=== PATIENT | male | born 1980 | race Caucasian/White ===

== ENCOUNTER 2017-11-22 14:54 | Inpatient (IN) | payer OTHER ==
[2017-11-22 15:40] LABS: ADD MAN DIFF? NO
[2017-11-22 15:41] LABS: BASO % 0 % (0-3); EOS # 0.1 x10^3/uL (0.0-0.7); EOS % 2 % (0-3); HEMATOCRIT 38.4 % (39.0-53.0); HEMOGLOBIN 13.4 g/dL (13.0-17.5); LYMPH # 0.8 x10^3/uL (1.0-4.8); LYMPH % 11 % (24-48); MEAN CORPUSCULAR HEMOGLOBIN 37 pg (25-35); MEAN CORPUSCULAR HGB CONC 35 g/dL (31-37); MEAN CORPUSCULAR VOLUME 106 fL (79-100); MONO # 0.7 x10^3/uL (0.0-1.1); MONO % 10 % (0-9); NEUT # 5.4 x10^3uL (1.8-7.7); NEUT % 77 % (31-73); PLATELET COUNT 28 x10^3/uL (140-400); RED BLOOD COUNT 3.64 x10^6/uL (4.30-5.70); RED CELL DISTRIBUTION WIDTH 16.7 % (11.5-14.5)
[2017-11-22 15:50] LABS: INR 2.1 (0.8-1.1); PROTHROMBIN TIME PATIENT 23.2 SEC (11.7-14.0)
[2017-11-22 15:51] LABS: PARTIAL THROMBOPLASTIN TIME 43 SEC (24-38)
[2017-11-22 15:55] LABS: ANION GAP 11 (6-14); BLOOD UREA NITROGEN 16 mg/dL (8-26); CALCIUM 8.8 mg/dL (8.5-10.1); CARBON DIOXIDE 24 mmol/L (21-32); CHLORIDE 99 mmol/L (98-107); CREATININE 1.1 mg/dL (0.7-1.3); GFR 76.2; GLUCOSE 127 mg/dL (70-99); POTASSIUM 3.9 mmol/L (3.5-5.1); SODIUM 134 mmol/L (136-145)
[2017-11-22 16:01] LABS: ACETAMIN < 2 mcg/ml (10-30); ETHANOL < 10 mg/dL (0-10); PLT ESTIMATE DECREASED (ADEQUATE); SALIC < 2.8 mg/dL (2.8-20.0)
[2017-11-22 16:02] LABS: ALBUMIN 3.2 g/dL (3.4-5.0); ALK PHOS 167 U/L (46-116); ALT (SGPT) 39 U/L (16-63); AST (SGOT) 148 U/L (15-37); DIRECT BILIRUBIN 6.6 mg/dL (0.0-0.2); MAGNESIUM 1.1 mg/dL (1.8-2.4); TOTAL BILIRUBIN 10.4 mg/dL (0.2-1.0)
[2017-11-22 16:07] LABS: THYROID STIM HORMONE (TSH) 2.864 uIU/mL (0.358-3.74)
[2017-11-22 16:08] LABS: AMMONIA 13 mcmol/L (11-34)
[2017-11-22 16:09] LABS: CKMB INDEX 0.2 % (0-4); CKMB MASS 0.9 ng/mL (0.0-3.6); CREATINE KINASE 403 U/L (39-308)
[2017-11-22] MEDS: IV NORMAL SALINE 1000ML BAG 1,000 ML IV ×3 (16:38→22:45)
[2017-11-22 18:27] LABS: BILIRUBIN,URINE LARGE (NEG); CLARITY,URINE CLEAR; COLOR,URINE ORANGE; GLUCOSE,URINE NEGATIVE (NEG); NITRITE,URINE POSITIVE (NEG); PH,URINE 5.5; PROTEIN,URINE NEGATIVE (NEG-TRACE)
[2017-11-22 18:33] LABS: BARBITURATES NEG (NEG); BENZODIAZEPINES NEG (NEG); CANNABINOIDS NEG (NEG); COCAINE NEG (NEG); METHADONE NEG (NEG); OPIATES NEG (NEG); PHENCYCLIDINE NEG (NEG)
[2017-11-22 18:35] LABS: BACTERIA,URINE MODERATE /HPF (0-FEW); RBC,URINE 0 /HPF (0-2)
[2017-11-22 18:36] LABS: AMPHETAMINE/METHAMPHETAMINE NEG (NEG); ETHANOL, URINE NEG (NEG); SQUAMOUS EPITHELIAL CELL,UR FEW /LPF
[2017-11-22] MEDS ORDERED: LACTULOSE 20 GM/30 ML SOLUTION. PO (21:15)
[2017-11-22] MEDS: cefTRIAXone IV Push 1 GM VIAL. IVP (21:53)
[2017-11-22] MEDS: DEXTROSE 5% IV (21:54)
[2017-11-22] MEDS: THIAMINE IV (21:54)
[2017-11-23] MEDS: PHYTONADIONE (VIT K1) IV 10 MG in IV DEXTROSE 5% 50 ML IV (00:24)
[2017-11-23 04:10] LABS: ADD MAN DIFF? NO
[2017-11-23 04:16] LABS: BASO % 1 % (0-3); EOS # 0.1 x10^3/uL (0.0-0.7); EOS % 2 % (0-3); HEMATOCRIT 34.5 % (39.0-53.0); HEMOGLOBIN 12.1 g/dL (13.0-17.5); LYMPH # 0.9 x10^3/uL (1.0-4.8); LYMPH % 13 % (24-48); MEAN CORPUSCULAR HEMOGLOBIN 37 pg (25-35); MEAN CORPUSCULAR HGB CONC 35 g/dL (31-37); MEAN CORPUSCULAR VOLUME 105 fL (79-100); MONO # 0.7 x10^3/uL (0.0-1.1); MONO % 11 % (0-9); NEUT # 4.9 x10^3uL (1.8-7.7); NEUT % 74 % (31-73); PLATELET COUNT 28 x10^3/uL (140-400); RED BLOOD COUNT 3.28 x10^6/uL (4.30-5.70); RED CELL DISTRIBUTION WIDTH 16.4 % (11.5-14.5); WHITE BLOOD COUNT 6.7 x10^3/uL (4.0-11.0)
[2017-11-23 04:24] LABS: FIBRINOGEN 155 mg/dL (200-440)
[2017-11-23 04:34] LABS: MONONUCLEOSIS PATIENT NEGATIVE (NEGATIVE); NEGATIVE OBC MONO NEG; POSITIVE OBC MONO POS
[2017-11-23 04:35] LABS: ANION GAP 11 (6-14); BLOOD UREA NITROGEN 15 mg/dL (8-26); CALCIUM 8.3 mg/dL (8.5-10.1); CARBON DIOXIDE 22 mmol/L (21-32); CHLORIDE 101 mmol/L (98-107); CREATININE 0.9 mg/dL (0.7-1.3); GLUCOSE 107 mg/dL (70-99); POTASSIUM 3.4 mmol/L (3.5-5.1); SODIUM 134 mmol/L (136-145)
[2017-11-23 04:40] LABS: ALBUMIN 2.8 g/dL (3.4-5.0); ALK PHOS 139 U/L (46-116); ALT (SGPT) 35 U/L (16-63); AST (SGOT) 123 U/L (15-37); DIRECT BILIRUBIN 5.9 mg/dL (0.0-0.2); TOTAL BILIRUBIN 8.6 mg/dL (0.2-1.0); TOTAL PROTEIN 7.6 g/dL (6.4-8.2)
[2017-11-23 04:50] LABS: D-DIMER 0.64 ug/mlFEU (0.00-0.50)
[2017-11-23 04:55] LABS: INR 2.2 (0.8-1.1); PROTHROMBIN TIME PATIENT 24.1 SEC (11.7-14.0)
[2017-11-23 05:22] LABS: SEDIMENTATION RATE 25 (0-15)
[2017-11-23] MEDS ORDERED: diphenhydrAMINE 50 MG/ML VIAL IVP (07:00)
[2017-11-23] MEDS: MULTIVIT INFUSN,ADULT 4,VIT K 10 ML, THIAMINE 100 MG, FOLIC ACID 1 MG in IV NORMAL SALI... IV (07:48)
[2017-11-23] MEDS: HALOPERIDOL LACTATE 5 MG/ML VIAL. IVP ×2 (08:01→21:54)
[2017-11-23] MEDS: LACTOBACILLUS RHAMNOSUS GG 1 CAPSULE. PO ×2 (15:00→21:58)
[2017-11-23] MEDS: IOHEXOL 300 MG/ML 100ML VIAL. IV (15:30)
[2017-11-23] MEDS ORDERED: CONTRAST GIVEN MC (15:45)
[2017-11-23 17:10] LABS: HAPTOGLOBIN <10 mg/dL (34-200)
[2017-11-23 18:23] LABS: % SAT IRON 70 % (15-34); IRON,SERUM 102 ug/dL (65-175)
[2017-11-23] MEDS: cefTRIAXone IV Push 1 GM VIAL. IVP (21:55)
[2017-11-23] MEDS: THIAMINE IV (21:55)
[2017-11-23] MEDS: DEXTROSE 5% IV (21:55)
[2017-11-24] MEDS: HALOPERIDOL LACTATE 5 MG/ML VIAL. IVP (04:05)
[2017-11-24 04:29] LABS: ADD MAN DIFF? NO
[2017-11-24 04:44] LABS: PROTHROMBIN TIME PATIENT 21.7 SEC (11.7-14.0)
[2017-11-24 05:21] LABS: MAGNESIUM 1.5 mg/dL (1.8-2.4)
[2017-11-24 05:36] LABS: BASO % 1 % (0-3); EOS # 0.1 x10^3/uL (0.0-0.7); EOS % 2 % (0-3); HEMATOCRIT 36.6 % (39.0-53.0); HEMOGLOBIN 12.4 g/dL (13.0-17.5); LYMPH % 17 % (24-48); MEAN CORPUSCULAR HEMOGLOBIN 37 pg (25-35); MEAN CORPUSCULAR HGB CONC 34 g/dL (31-37); MEAN CORPUSCULAR VOLUME 109 fL (79-100); MONO # 0.6 x10^3/uL (0.0-1.1); MONO % 12 % (0-9); NEUT # 3.8 x10^3uL (1.8-7.7); NEUT % 69 % (31-73); PLATELET COUNT 38 x10^3/uL (140-400); RED BLOOD COUNT 3.37 x10^6/uL (4.30-5.70); RED CELL DISTRIBUTION WIDTH 16.5 % (11.5-14.5); WHITE BLOOD COUNT 5.6 x10^3/uL (4.0-11.0)
[2017-11-24 05:37] LABS: ALBUMIN/GLOBULIN RATIO 0.6 (1.0-1.7); ALK PHOS 143 U/L (46-116); ALT (SGPT) 35 U/L (16-63); ANION GAP 14 (6-14); AST (SGOT) 120 U/L (15-37); BLOOD UREA NITROGEN 12 mg/dL (8-26); BUN/CREATININE RATIO 13 (6-20); CALCIUM 8.4 mg/dL (8.5-10.1); CARBON DIOXIDE 19 mmol/L (21-32); CHLORIDE 103 mmol/L (98-107); CREATININE 0.9 mg/dL (0.7-1.3); GAMMA GLUTAMYL TRANSPEPTIDASE 251 U/L (10-85); GLUCOSE 107 mg/dL (70-99); POTASSIUM 3.7 mmol/L (3.5-5.1); SODIUM 136 mmol/L (136-145); TOTAL BILIRUBIN 9.1 mg/dL (0.2-1.0); TOTAL PROTEIN 8.2 g/dL (6.4-8.2)
[2017-11-24] MEDS: DEXTROSE 5% IV ×2 (09:40→21:00)
[2017-11-24] MEDS: THIAMINE IV ×2 (09:40→21:00)
[2017-11-24] MEDS: LACTOBACILLUS RHAMNOSUS GG 1 CAPSULE. PO ×2 (09:41→21:00)
[2017-11-24] MEDS: MULTIVIT INFUSN,ADULT 4,VIT K 10 ML, THIAMINE 100 MG, FOLIC ACID 1 MG in IV NORMAL SALI... IV (09:41)
[2017-11-24] MEDS: cefTRIAXone IV Push 1 GM VIAL. IVP (21:30)
[2017-11-25] MEDS: LACTOBACILLUS RHAMNOSUS GG 1 CAPSULE. PO ×2 (09:39→20:18)
[2017-11-25] MEDS: MULTIVIT INFUSN,ADULT 4,VIT K 10 ML, THIAMINE 100 MG, FOLIC ACID 1 MG in IV NORMAL SALI... IV (09:39)
[2017-11-25 10:42] LABS: FOLATE 11.34 ng/ml (3.2-20.0)
[2017-11-25 10:47] LABS: VITAMIN-B12 > 2000 pg/mL (247-911)
[2017-11-25] MEDS: THIAMINE IV ×2 (12:38→20:18)
[2017-11-25] MEDS: DEXTROSE 5% IV ×2 (12:38→20:18)
[2017-11-25 13:19] LABS: CERULOPLASMIN 19.2 mg/dL (16.0-31.0); HCV ANTIBODY <0.1 s/co ratio (0.0-0.9); HEP A IGM ABDY Negative (Negative); HEP B SURFACE AG Negative (Negative); HIV ANTIBODY Non Reactive (Non Reactive)
[2017-11-25] MEDS ORDERED: MORPHINE SULFATE 4 MG/ML DISP.SYRIN. IV (14:15)
[2017-11-25] MEDS ORDERED: ACETAMINOPHEN 325 MG TABLET. PO (14:15)
[2017-11-25] MEDS ORDERED: traMADol 50 MG TABLET PO (14:15)
[2017-11-25] MEDS ORDERED: DOCUSATE SODIUM 100 MG CAPSULE. PO (14:15)
[2017-11-25] MEDS ORDERED: hydrALAZINE 20 MG/ML VIAL. IVP (14:15)
[2017-11-25] MEDS ORDERED: ONDANSETRON PF 4 MG/2 ML VIAL. IV (14:15)
[2017-11-26 05:45] LABS: ADD MAN DIFF? NO
[2017-11-26 05:52] LABS: BASO % 0 % (0-3); EOS # 0.1 x10^3/uL (0.0-0.7); EOS % 3 % (0-3); HEMOGLOBIN 11.3 g/dL (13.0-17.5); LYMPH # 0.9 x10^3/uL (1.0-4.8); LYMPH % 22 % (24-48); MEAN CORPUSCULAR HEMOGLOBIN 37 pg (25-35); MEAN CORPUSCULAR HGB CONC 34 g/dL (31-37); MEAN CORPUSCULAR VOLUME 107 fL (79-100); MONO # 0.6 x10^3/uL (0.0-1.1); MONO % 13 % (0-9); NEUT # 2.6 x10^3uL (1.8-7.7); NEUT % 62 % (31-73); PLATELET COUNT 45 x10^3/uL (140-400); RED BLOOD COUNT 3.07 x10^6/uL (4.30-5.70); RED CELL DISTRIBUTION WIDTH 16.5 % (11.5-14.5); WHITE BLOOD COUNT 4.3 x10^3/uL (4.0-11.0)
[2017-11-26 06:13] LABS: ANION GAP 9 (6-14); BLOOD UREA NITROGEN 7 mg/dL (8-26); CALCIUM 8.3 mg/dL (8.5-10.1); CARBON DIOXIDE 24 mmol/L (21-32); CHLORIDE 105 mmol/L (98-107); CREATININE 0.8 mg/dL (0.7-1.3); GLUCOSE 93 mg/dL (70-99); POTASSIUM 3.6 mmol/L (3.5-5.1); SODIUM 138 mmol/L (136-145)
[2017-11-26] MEDS: LACTOBACILLUS RHAMNOSUS GG 1 CAPSULE. PO ×2 (08:46→21:00)
[2017-11-26 09:19] LABS: IGG1 1540 mg/dL (248-810); IGG2 515 mg/dL (130-555); IGG3 129 mg/dL (15-102); IGG4 131 mg/dL (2-96); TOTAL IGG 2000 mg/dL (700-1600)
[2017-11-26] MEDS: MULTIVIT INFUSN,ADULT 4,VIT K 10 ML, THIAMINE 100 MG, FOLIC ACID 1 MG in IV NORMAL SALI... IV (09:21)
[2017-11-26] MEDS: DEXTROSE 5% IV ×2 (09:22→21:23)
[2017-11-26] MEDS: THIAMINE IV ×2 (09:22→21:23)
[2017-11-26 11:29] LABS: MITOCHONDRIAL ABDY 14.8 Units (0.0-20.0); SMOOTH MUSCLE AB 22 Units (0-19)
[2017-11-26] MEDS: TRIAMCINOLONE ACETONIDE 0.1% TOPICAL CREAM 15GM TUBE. TP ×2 (11:43→21:23)
[2017-11-26 12:46] LABS: CREATINE KINASE 103 U/L (39-308)
[2017-11-26 12:47] LABS: CKMB MASS < 0.5 ng/mL (0.0-3.6)
[2017-11-26 17:18] LABS: COPPER LEVEL 83 ug/dL (72-166)
[2017-11-27 06:30] LABS: ALBUMIN 2.3 g/dL (3.4-5.0); ALK PHOS 114 U/L (46-116); ALT (SGPT) 37 U/L (16-63); AST (SGOT) 92 U/L (15-37); DIRECT BILIRUBIN 3.6 mg/dL (0.0-0.2); TOTAL BILIRUBIN 5.7 mg/dL (0.2-1.0); TOTAL PROTEIN 6.7 g/dL (6.4-8.2)
[2017-11-27 09:21] LABS: ANA INTERP Negative (.)
[2017-11-27] MEDS: MULTIVIT INFUSN,ADULT 4,VIT K 10 ML, THIAMINE 100 MG, FOLIC ACID 1 MG in IV NORMAL SALI... IV (09:36)
[2017-11-27] MEDS: TRIAMCINOLONE ACETONIDE 0.1% TOPICAL CREAM 15GM TUBE. TP (09:36)
[2017-11-27] MEDS: LACTOBACILLUS RHAMNOSUS GG 1 CAPSULE. PO (09:37)
[2017-11-27] MEDS: THIAMINE IV (09:37)
[2017-11-27] MEDS: DEXTROSE 5% IV (09:37)
[2017-11-28] MEDS ORDERED: THIAMINE 100 MG TABLET. PO (09:00)
[2017-11-28] MEDS ORDERED: FOLIC ACID 1 MG TABLET. PO (09:00)
== END 2017-11-27 12:37 | disposition home or self-care (01) | DRG 432 ==
LOC: ER 14:54 → 6 SOUTH 17:30
DX: K70.40 Alcoholic hepatic failure without coma (principal); G92 Toxic encephalopathy; K70.10 Alcoholic hepatitis without ascites; D68.9 Coagulation defect, unspecified; D69.59 Other secondary thrombocytopenia; E83.51 Hypocalcemia; F22 Delusional disorders; F10.239 Alcohol dependence with withdrawal, unspecified; K76.6 Portal hypertension; K70.30 Alcoholic cirrhosis of liver without ascites; D63.8 Anemia in other chronic diseases classified elsewhere; F17.210 Nicotine dependence, cigarettes, uncomplicated; H55.00 Unspecified nystagmus; K82.8 Other specified diseases of gallbladder; K83.8 Other specified diseases of biliary tract; L40.9 Psoriasis, unspecified; M51.37 Other intervertebral disc degeneration, lumbosacral region
CPT/HCPCS: 36415; 70450; 71046; 74177; 74181; 76705; 80048; 80053; 80074; 80076; 80307; 80329; 81001; 81256; 82140; 82390; 82525; 82553; 82607; 82746; 82787; 82977; 83010; 83520; 83540; 83550; 83735; 84443; 85025; 85379; 85384; 85610; 85651; 85730; 86038; 86140; 86255; 86308; 86644; 86645; 86703; 86880; 87086; 95816; 96360; 99285; 99285-25; G0480; J0696; J1630; J2060; J3430; J7030

== ENCOUNTER → 2017-12-02 | Day surgery (SDC) | payer OTHER ==
[~2017-12-02] MED LIST: LIDOCAINE 1% PF 2 ML VIAL. ID; LIDOCAINE 2% 100 MG/5 ML SYRINGE.; MORPHINE SULFATE 2 MG/ML DISP.SYRIN. IV; ONDANSETRON PF 4 MG/2 ML VIAL. IV; PROCHLORPERAZINE 10 MG/2 ML VIAL. IV; PROPOFOL 40 ML IV; fentaNYL PF VIAL 100 MCG/2 ML VIAL IV
[2017-12-02] MEDS: IV RINGERS,LACTATED 1000ML 1,000 ML IV (14:30)
== END | disposition home or self-care (01) ==
LOC: SURG 14:16
DX: K21.0 Gastro-esophageal reflux disease with esophagitis (principal); K76.6 Portal hypertension; K31.89 Other diseases of stomach and duodenum; K76.9 Liver disease, unspecified; Z72.89 Other problems related to lifestyle; Z79.899 Other long term (current) drug therapy
CPT/HCPCS: 43235; J2704